=== PATIENT | female | born 1990 | race Caucasian/White ===

== ENCOUNTER 2019-08-15 12:58 | Emergency (ER) | payer SELFPAY ==
[~2019-08-15] VITALS: Ht 162.6 cm; Wt 61.4 kg
--- NOTE | 2019-08-15 13:18 | NUR ---
FIRST CONTACT WITH PT. PT C/O LEFT EYE ERYTHEMA, TEARY, RED AND SEES A WHITE SPOT. PT'S AOX4. RESPS EVEN AND UNLABORED. VA DONE AT TRIAGE. DENIES ANY OTHER SX. FAMILY AT BEDSIDE.
[2019-08-15] MEDS ORDERED: PROPARACAINE OPHTH 0.5%, 15ML ONE (13:38)
[2019-08-15] MEDS ORDERED: FLUORESCEIN OPHTHALMIC 1 MG STRIP ONE (13:40)
[2019-08-15] MEDS ORDERED: FLUORESCEIN OPHTHALMIC 1 MG STRIP LEFTEYE ONE (14:00)
[2019-08-15] MEDS ORDERED: PROPARACAINE OPHTH 0.5%, 15ML LEFTEYE ONE (14:00)
--- NOTE | 2019-08-15 14:08 | NUR ---
VA DONE AT THIS TIME PER EDMD'S VERBAL ORDER. VA IS THE SAME BEFORE BUT PT STATES"I FEEL MUCH BETTER AND I CAN OPEN EYES EASILY." EDMD NOTIFIED.
[2019-08-15] MEDS ORDERED: OXYcodone/APAP 10/325MG TABLET ONE (14:51)
[2019-08-15 14:55] VITALS: BP 117/88
--- NOTE | 2019-08-15 14:55 | NUR ---
PT MEDICATED PER EMAR FOR PAIN. PT TOLERATED WELL.
[2019-08-15] MEDS ORDERED: OXYcodone/APAP 10/325MG TABLET PO ONE (15:00)
--- NOTE | 2019-08-15 15:41 | NUR ---
PT'S PAIN LEVEL IS 6/10 AT THIS TIME.
--- NOTE | 2019-08-15 16:22 | NUR ---
OPHTHO AT BEDSIDE TO EVALUATE AT THIS TIME.
--- NOTE | 2019-08-15 16:51 | NUR ---
Patient given discharge instructions and they have confirmed that they understand the instructions. Patient ambulatory with steady gait.
== END 2019-08-15 16:52 | disposition home or self-care (01) ==
LOC: ED 13:42
DX: H16.042 Marginal corneal ulcer, left eye (principal)
CPT/HCPCS: 99283